=== PATIENT | female | born 1975 | race Caucasian/White ===

== ENCOUNTER → 2017-07-16 | Outpatient (CLI) | payer OTHER ==
[~2017-07-16] MED LIST: CELEXA 20MG20 MG/TAB PO; CLARITIN 1010 MG/TAB PO; DIAZEPAM10 MG PO; FLONASEALLERGY NS; HCTZ 25MG TAB25 MG PO; IRON325 MG PO; LISINOPRIL20 MG PO; LO LOESTRIN FE1 TAB PO; TRICOR145 MG PO; VITAMIN D32000 I1 PO; ZETIA 10MG TAB10 MG PO; ZITHROMAX 250M250 MG PO; ZOCOR 20MG20 MG PO
== END ==
LOC: COL.CARD 08:40
DX: R00.2 Palpitations (principal)

== ENCOUNTER 2018-07-05 08:04 | Day surgery (SDC) | payer OTHER ==
[~2018-07-05] VITALS: Ht 167.6 cm; Wt 82.0 kg
[~2018-07-05 08:04] MED LIST changes: -IRON325 MG PO; +NATURAL IRON65 MG PO
[2018-07-05] MEDS ORDERED: SINGULAIR 110 MG/TAB PO (08:29)
[2018-07-05] MEDS ORDERED: SYNTHROID0.05 MG/TA PO (08:30)
[2018-07-05] MEDS ORDERED: PRENATAL VITAMI1 TA3 PO (08:32)
[2018-07-05] MEDS ORDERED: ALLEGRA 180MG180 MG PO (08:33)
[2018-07-05 09:16] VITALS: BP 113/68; PULSE 66; TEMP 97.5
[2018-07-05] MEDS ORDERED: COLACE 100100 MG/CAP PO (11:40)
[2018-07-05] MEDS ORDERED: MOTRIN 600600 MG/TAB PO (11:40)
[2018-07-05] MEDS ORDERED: NORCO 325 MG-51 TAB PO (11:40)
[2018-07-05 11:55] VITALS: BP 108/64; PULSE 63; TEMP 97.9
--- NOTE | 2018-07-05 11:55 | NUR ---
Patient arrives back to [facility] alert and reports slight abdominal pain/discomfort. Patient monitor applied, vitals stable. at bedside.
[2018-07-05 12:15] VITALS: BP 106/71; PULSE 82
[2018-07-05 12:30] VITALS: BP 109/60; PULSE 76
[2018-07-05 12:45] VITALS: BP 107/63; PULSE 75
[2018-07-05 13:00] VITALS: BP 111/66; PULSE 74
--- NOTE | 2018-07-05 13:00 | NUR ---
Patient tolerated food and drink without any nausea. Vitals stable. Patient reports pain/discomfort getting better. Patient up to restroom.
--- NOTE | 2018-07-05 13:05 | NUR ---
Patient is able to void without any difficulties.
--- NOTE | 2018-07-05 13:20 | NUR ---
Dismissal instructions gone over with patient and patient's spouse. Both verbalize understanding and all questions answered. Patient discharged to home via wheelchair.
== END 2018-07-05 13:25 | disposition home or self-care (01) ==
LOC: SDCO 08:04
DX: K43.2 Incisional hernia without obstruction or gangrene (principal); E78.00 Pure hypercholesterolemia, unspecified; D64.9 Anemia, unspecified; G47.30 Sleep apnea, unspecified; J30.9 Allergic rhinitis, unspecified; F32.9 Major depressive disorder, single episode, unspecified; E03.9 Hypothyroidism, unspecified; Z90.710 Acquired absence of both cervix and uterus; F17.210 Nicotine dependence, cigarettes, uncomplicated; Z88.0 Allergy status to penicillin; Z88.1 Allergy status to other antibiotic agents
CPT/HCPCS: C1781; J0690; J1100; J1885; J2405; J2704; J3010; J7120

== ENCOUNTER → 2019-06-08 | Outpatient (CLI) | payer OTHER ==
[~2019-06-08] MED LIST changes: +ALLEGRA 180MG180 MG PO; +COLACE 100100 MG/CAP PO; +MOTRIN 600600 MG/TAB PO; +NORCO 325 MG-51 TAB PO; +PRENATAL VITAMI1 TA3 PO; +SINGULAIR 110 MG/TAB PO; +SYNTHROID0.05 MG/TA PO
== END ==
LOC: MC.RAD 16:35
DX: Z12.31 Encounter for screening mammogram for malignant neoplasm of breast (principal)

== ENCOUNTER → 2021-05-29 | Outpatient (CLI) | payer OTHER | LOC: MC.RAD 06:45 | DX: Z12.31 Encounter for screening mammogram for malignant neoplasm of breast (principal) ==

== ENCOUNTER → 2021-06-06 | Outpatient (CLI) | payer OTHER | LOC: MC.RAD 06:53 | DX: N64.89 Other specified disorders of breast (principal) ==

== ENCOUNTER → 2021-12-05 | Outpatient (CLI) | payer OTHER | LOC: MC.RAD 12-01 07:00 | DX: N64.89 Other specified disorders of breast (principal) ==

== ENCOUNTER → 2024-04-04 | Outpatient (CLI) | payer OTHER | LOC: MC.RAD 10:13 | DX: Z12.31 Encounter for screening mammogram for malignant neoplasm of breast (principal) ==

== ENCOUNTER 2024-05-17 20:42 | Emergency (ER) | payer OTHER ==
[~2024-05-17] VITALS: Ht 167.6 cm; Wt 79.5 kg
[2024-05-17 20:46] VITALS: BP 137/87; TEMP 98.7
[2024-05-17] MEDS ORDERED: Ketorolac 15 MG/ML VIAL IM ONE (21:15)
[2024-05-17] MEDS ORDERED: Tetanus,Diphther Toxoid Adult 0.5 ML SYRINGE IM ONE (21:15)
[2024-05-17] MEDS ORDERED: Amoxicillin/Clavulanate K+ 875/125 MG TAB PO ONE (21:15)
[2024-05-17] MEDS ORDERED: AMOXICILLIN 8751 TAB PO (22:29)
[2024-05-17 22:51] VITALS: PULSE 84
== END 2024-05-17 22:51 | disposition home or self-care (01) ==
LOC: COL.ER 20:42
DX: S51.851A Open bite of right forearm, initial encounter (principal); S51.852A Open bite of left forearm, initial encounter; F17.200 Nicotine dependence, unspecified, uncomplicated; Z23 Encounter for immunization; Z88.1 Allergy status to other antibiotic agents; W54.0XXA Bitten by dog, initial encounter
CPT/HCPCS: J1885